=== PATIENT | female | born 1965 | race Caucasian/White ===

== ENCOUNTER → 2018-05-15 10:33 | Outpatient (CLI) | payer BC, SELFPAY ==
[2018-05-15 10:57] LABS: Basophils # 0.1 K/mm3 (0-0.2); Basophils % 0.5 % (0.1-2.0); Eosinophils # 0.1 K/mm3 (0.0-0.4); Eosinophils % 1.4 % (0.1-12.0); Hematocrit 47.7 % (37.0-47.0); Hemoglobin 15.6 g/dL (12.2-16.2); Lymphocytes # 1.6 K/mm3 (0.7-4.5); Lymphocytes % 18.2 K/mm3 (10-50); Mean Corpuscular HGB Conc 32.6 g/dL (31.8-35.4); Mean Corpuscular Hemoglobin 32.3 pg (27.0-31.2); Mean Platelet Volume 7.6 fl (7.4-10.4); Monocytes # 0.4 K/mm3 (0.1-1.0); Monocytes % 4.3 % (1.7-9.3); Neutrophils # 6.6 K/mm3 (1.8-7.8); Neutrophils % 75.6 % (37.0-80.0); Platelet Count 240 K/mm3 (142-424); Red Blood Count 4.82 M/mm3 (4.20-5.40); Red Cell Distribution Width 12.7 % (11.5-17.5); White Blood Count 8.7 K/mm3 (4.8-10.8)
[2018-05-15 11:10] LABS: Anion Gap 12.8 mEq/L (5-15); Blood Urea Nitrogen 10 mg/dL (7-18); Calcium 9.6 mg/dL (8.5-10.1); Carbon Dioxide 27 mmol/L (21.0-32.0); Chloride 95 mmol/L (98-107); Creatinine,Serum 0.79 mg/dL (0.55-1.02); Estimated Glomerular Filt Rate 77 ml/min (>60); GFR (African American) 93 ML/MIN (>60); Glucose 109 mg/dL (74-106); Potassium 3.8 mmoL/L (3.5-5.1); Sodium 131 mmol/L (136-145)
== END ==
PROVIDERS: Visit Provider Internal Medicine Adolescent Medicine
DX: I10 Essential (primary) hypertension (principal)
CPT/HCPCS: 36415; 80048; 85025

== ENCOUNTER → 2019-01-09 09:21 | Outpatient (CLI) | payer BC, SELFPAY ==
--- NOTE | 2019-01-09 09:24 | MM_ITS ---
MM Dig screening mamm BI w/CAD CAD Screening COMPARISON: Digital mammograms with CAD 06/21/2017 and 01/19/2016 INDICATION: There is a history of breast cancer in patient's maternal aunt. There has been previous bilateral breast reduction surgery. TECHNIQUE: Standard CC and MLO images were obtained. R2 CAD reviewed. FINDINGS: Mild scattered fibroglandular densities are seen throughout both breast on a background of fatty type breast parenchyma. There is minimal post surgical scarring inferior quadrants of each breast. There is no suspicious lesion and there are no suspicious microcalcifications. IMPRESSION: Fibrofatty parenchyma no suspicious lesion seen BI-RADS Category: 1 Negative RECOMMENDED FOLLOW-UP: 1YR - 1 YEAR FOLLOW-UP (A letter has been sent to the patient regarding results of the study.)
== END ==
PROVIDERS: PCP Internal Medicine Adolescent Medicine; Visit Provider Nurse Practitioner Obstetrics & Gynecology
DX: Z12.31 Encounter for screening mammogram for malignant neoplasm of breast (principal)
CPT/HCPCS: 77067

== ENCOUNTER → 2020-02-25 11:03 | Outpatient (CLI) | payer BC, SELFPAY ==
[2020-02-25 11:14] LABS: Microscopic, Urine URINE MICROSCOPIC (MICROSCOPIC)
--- NOTE | 2020-02-25 11:22 | CT_ITS ---
PROCEDURE: CT ABDOMEN PELVIS WO CON CLINICAL INDICATION: LT FLANK PAIN COMPARISON: No exams were available for comparison TECHNIQUE: Axial images obtained with sagittal and coronal reformats. All CT scans at the facility use one or more dose reduction, viz: automated exposure control, ma/kV adjustment per patient size (including targeted exams where dose is matched to indication, i.e. head), or iterative reconstruction technique. FINDINGS: LOWER THORAX: No acute finding ABDOMEN & PELVIS: The liver, spleen, pancreas, adrenal glands, and kidneys show no acute finding. There is no renal stone or obstruction. No intestinal obstruction or free air. No evidence of appendicitis or diverticulitis. No pelvic mass, abnormal fluid collection, or focal inflammatory change of the pelvis. There is a nonspecific enlarged retrocrural lymph node 9.2 x 11.6 millimeters. No other lymphadenopathy is evident. There is mild chronic compression deformity of T12 with degenerative Schmorl's node along the superior endplate and there is degenerative disc disease at T11-12. An approximately 1 centimeter fat density at the ileocecal is likely a benign lipoma. IMPRESSION: No acute finding. Dictated by: Raheel Galvan 02/25/2020 12:13 Electronically signed by Raheel Galvan in [facility] 02/25/2020 12:13
[2020-02-25 11:30] LABS: Chloride 92 mmol/L (98-107)
[2020-02-25 11:31] LABS: Potassium 3.5 mmoL/L (3.5-5.1); Sodium 129 mmol/L (136-145)
[2020-02-25 11:32] LABS: Basophils # 0.1 K/mm3 (0-0.2); Basophils % 0.8 % (0.1-2.0); Eosinophils # 0.1 K/mm3 (0.0-0.4); Eosinophils % 0.8 % (0.1-12.0); Hematocrit 44.4 % (37.0-47.0); Hemoglobin 14.8 g/dL (12.2-16.2); Lymphocytes # 1.5 K/mm3 (0.7-4.5); Lymphocytes % 21.2 % (10-50); Mean Corpuscular HGB Conc 33.4 g/dL (31.8-35.4); Mean Corpuscular Hemoglobin 34.1 pg (27.0-31.2); Mean Corpuscular Volume 102.1 fl (81-99); Mean Platelet Volume 7.4 fl (7.4-10.4); Monocytes # 0.3 K/mm3 (0.1-1.0); Monocytes % 4.2 % (1.7-9.3); Neutrophils # 5.3 K/mm3 (1.8-7.8); Neutrophils % 73.1 % (37.0-80.0); Platelet Count 222 K/mm3 (142-424); Red Blood Count 4.35 M/mm3 (4.20-5.40); Red Cell Distribution Width 12.6 % (11.5-17.5); White Blood Count 7.3 K/mm3 (4.8-10.8)
[2020-02-25 11:33] LABS: Alanine Aminotransferase 30 U/L (12-78); Aspartate Amino Transferase 39 U/L (14-36); Blood Urea Nitrogen 9 mg/dl (7-17); Estimated Glomerular Filt Rate 75 ml/min (>60); GFR (African American) 91 ML/MIN (>60)
[2020-02-25 11:34] LABS: Albumin Level 4.3 g/dl (3.5-5.0); Albumin/Globulin Ratio 1.4 (1.1-1.8); Alkaline Phosphatase 76 U/L (38-126); Anion Gap 13.5 mEq/L (5-15); Bilirubin,Total 0.5 mg/dl (0.2-1.3); Calcium 9.7 mg/dl (8.4-10.2); Carbon Dioxide 27 mmol/L (22.0-30.0); Glucose 116 mg/dl (74-100); Total Protein,Serum 7.3 g/dl (6.3-8.2)
[2020-02-25 11:55] LABS: Appearance,Urine CLEAR (Clear); Bilirubin,Urine Negative (Negative); Blood, Urine TRACE-I (Negative); Color,Urine YELLOW (Yellow); Glucose,Urine (UA) Negative (Negative); Ketones,Urine TRACE (Negative); Leukocyte Esterase,Urine Negative (Negative); Nitrate,Urine Negative (Negative); Protein,Urine Negative (Negative); Urobilinogen,Urine 0.2 EU/dl (0.2)
[2020-02-25 12:02] LABS: Bacteria,Urine Trace /lpf
== END ==
PROVIDERS: PCP Internal Medicine Adolescent Medicine; Visit Provider Internal Medicine Adolescent Medicine
DX: R10.9 Unspecified abdominal pain (principal); R31.29 Other microscopic hematuria
CPT/HCPCS: 36415; 74176; 80053; 81001; 85025; 87086

== ENCOUNTER → 2020-09-28 11:09 | Outpatient (CLI) | payer BC, SELFPAY ==
--- NOTE | 2020-09-28 11:09 | MM_ITS ---
PROCEDURE: MM DIG SCREENING MAMM BI W/CAD Referring Doctor: Tye Schroeder Patient Age:55Y CLINICAL INDICATION: screening xmg 55-year-old. No hormones. No new complaints. Previous bilateral breast reduction. Family history maternal aunt with breast cancer COMPARISON: MG DMSB DIG MAMM-SCREEN SANG from 01/19/2016 MG DMSB DIG MAMM-SCREEN SANG W/CAD from 06/21/2017 MG [facility]BI MM Dig screening mamm BI w/CAD from 01/09/2019 TECHNIQUE: Standard CC and MLO images were obtained. R2 CAD reviewed. Bilateral digital breast tomosynthesis included. Additional CC nipple profile view and additional CC tomosynthesis left breast included the FINDINGS: Lower density breast.. Minimal residual fibroglandular elements no suspicious nor dominant mass either breast but; no suspicious calcifications. CAD highlights no areas of concern Evidence of subtle minimal scarring towards the deep margin of breast most notable deep lateral breast, from previous remote breast reduction. Stable feature IMPRESSION: Stable bilateral mammogram. No new areas of concern. Bilateral follow-up 1 year recommended BI-RAD Category: 1 Negative FOLLOW-UP: 1YR 1 Year Follow-up (A letter has been sent to the patient regarding results of the study.) Dictated by: Franco Bruner MD 10/06/2020 10:55 Franco Bruner MD in [facility] 10/06/2020 10:55
== END ==
PROVIDERS: PCP Internal Medicine Adolescent Medicine; Visit Provider Nurse Practitioner Obstetrics & Gynecology
DX: Z12.31 Encounter for screening mammogram for malignant neoplasm of breast (principal)
CPT/HCPCS: 77063; 77067

== ENCOUNTER → 2020-12-22 11:36 | Outpatient (CLI) | payer BC, SELFPAY ==
[2020-12-22 12:08] LABS: Basophils # 0.1 K/mm3 (0-0.2); Basophils % 1.1 % (0.1-2.0); Eosinophils # 0.1 K/mm3 (0.0-0.4); Eosinophils % 1.4 % (0.1-12.0); Hematocrit 45.6 % (37.0-47.0); Hemoglobin 15.1 g/dL (12.2-16.2); Lymphocytes # 1.5 K/mm3 (0.7-4.5); Lymphocytes % 26.4 % (10-50); Mean Corpuscular HGB Conc 33.1 g/dL (31.8-35.4); Mean Corpuscular Hemoglobin 32.7 pg (27.0-31.2); Mean Corpuscular Volume 98.9 fl (81-99); Mean Platelet Volume 7.5 fl (7.4-10.4); Monocytes # 0.3 K/mm3 (0.1-1.0); Monocytes % 4.5 % (1.7-9.3); Neutrophils # 3.7 K/mm3 (1.8-7.8); Neutrophils % 66.6 % (37.0-80.0); Platelet Count 238 K/mm3 (142-424); Red Blood Count 4.61 M/mm3 (4.20-5.40); Red Cell Distribution Width 12.7 % (11.5-17.5); White Blood Count 5.6 K/mm3 (4.8-10.8)
[2020-12-22 12:42] LABS: Alanine Aminotransferase 39 U/L (12-78); Albumin/Globulin Ratio 1.6 (1.1-1.8); Alkaline Phosphatase 127 U/L (38-126); Anion Gap 13.1 mEq/L (5-15); Aspartate Amino Transferase 45 U/L (14-36); Bilirubin,Total 0.5 mg/dl (0.2-1.3); Blood Urea Nitrogen 10 mg/dl (7-17); Calcium 10.4 mg/dl (8.4-10.2); Carbon Dioxide 28 mmol/L (22.0-30.0); Chloride 92 mmol/L (98-107); Cholesterol 254 mg/dl (140-200); Estimated Glomerular Filt Rate 88 ml/min (>60); GFR (African American) 106 ML/MIN (>60); Globulin 3.1 g/dL (1.3-3.2); Glucose 99 mg/dl (74-100); Potassium 4.1 mmoL/L (3.5-5.1); Sodium 129 mmol/L (136-145); Total Protein,Serum 8.1 g/dl (6.3-8.2); Triglycerides 76 mg/dl (30-150); VLDL Cholesterol 15 mg/dL (0-40)
[2020-12-22 13:48] LABS: Vitamin B12 893 pg/mL (239-931)
[2020-12-22 13:49] LABS: Folate 6.72 ng/mL
[2020-12-22 14:09] LABS: Chol/HDL Ratio 1.7 (1-3.5); HDL Cholesterol 152 mg/dl (40-60)
== END ==
PROVIDERS: Visit Provider Internal Medicine Adolescent Medicine
DX: D75.89 Other specified diseases of blood and blood-forming organs (principal)
CPT/HCPCS: 36415; 80053; 80061; 82607; 82746; 85025

== ENCOUNTER → 2021-02-02 11:16 | Outpatient (CLI) | payer BC, SELFPAY ==
[2021-02-02 12:30] LABS: Anion Gap 11.9 mEq/L (5-15); Blood Urea Nitrogen 7 mg/dl (7-17); Calcium 10.1 mg/dl (8.4-10.2); Carbon Dioxide 26 mmol/L (22.0-30.0); Chloride 99 mmol/L (98-107); Estimated Glomerular Filt Rate 75 ml/min (>60); GFR (African American) 91 ML/MIN (>60); Glucose 101 mg/dl (74-100); Potassium 4.9 mmoL/L (3.5-5.1); Sodium 132 mmol/L (136-145)
== END ==
PROVIDERS: Visit Provider Internal Medicine Adolescent Medicine
DX: E87.1 Hypo-osmolality and hyponatremia (principal); I10 Essential (primary) hypertension
CPT/HCPCS: 36415; 80048

== ENCOUNTER → 2022-01-31 09:52 | Outpatient (CLI) | payer BC, SELFPAY ==
--- NOTE | 2022-01-31 09:52 | MM_ITS ---
PROCEDURE INFORMATION: Exam: MG Bilateral Screening 3D Mammography Exam date and time: 01/31/2022 9:52 AM Age: 56 years old Clinical indication: Screening. A maternal aunt had breast cancer. TECHNIQUE: Imaging protocol: Bilateral Screening tomosynthesis and 2D mammography including computer-aided detection (CAD) when performed. 2D images used for review. COMPARISON: MG MM DIG SCREENING MAMM BI W/CAD 09/28/2020 11:11 AM FINDINGS: MAMMOGRAPHY: Breast composition: The breasts are almost entirely fatty. Mass: None. Architectural distortion: Bilateral diffuse mild architectural distortion, with bilateral reduction mammoplasty. No suspicious architectural distortion. Calcifications: No suspicious calcifications. Asymmetric density: None. Skin thickening: None. Axillary adenopathy: None. IMPRESSION: No mammographic evidence of malignancy. Annual screening is recommended unless otherwise clinically indicated. ASSESSMENT: BI-RADS Category 2: Benign
== END ==
PROVIDERS: PCP Internal Medicine Adolescent Medicine; Visit Provider Nurse Practitioner Obstetrics & Gynecology
DX: Z12.31 Encounter for screening mammogram for malignant neoplasm of breast (principal)
CPT/HCPCS: 77063; 77067

== ENCOUNTER → 2022-05-31 10:23 | Outpatient (CLI) | payer BC, SELFPAY | PROVIDERS: PCP Internal Medicine Adolescent Medicine; Visit Provider Surgery | DX: Z01.812 Encounter for preprocedural laboratory examination (principal); Z20.822 Contact with and (suspected) exposure to COVID-19; Z12.11 Encounter for screening for malignant neoplasm of colon | CPT/HCPCS: C9803; U0003; U0005 ==

== ENCOUNTER 2022-06-02 07:19 | Day surgery (SDC) | payer BC, SELFPAY ==
[2022-05-31 12:14] VITALS: BMI 25.7
[2022-06-02 07:34] VITALS: BP 134/91; PULSE 93; RESP 18; TEMP 37.2; O2SAT 97
[2022-06-02 08:12] VITALS: O2SAT 97
--- NOTE | 2022-06-02 08:12 | HMH.ANESCL ---
[facility] Anesthesia Checklist - Patient Identification Patient Identification: Arm Band - Structural Data Admitted From: Home Planned Operative Procedure/s: colonoscopy Consent for Planned Operative Procedure(s) Verified: Yes Verified Documents: Surgical Consent, History and Physical - NPO Status Verified Time NPO: 00:00 - Additional verifications Anesthesia Reactions: No - Airway Assessment C-Spine Mobility Assessed: Yes (mp2) TMJ Mobility Assessed: Yes Dentition: Good Dentition - Neurological Assessment Level of Consciousness: Awake, Alert - Anesthesia Plan Anesthesia Risk discussed: Yes Anesthesia Plan: Verified ASA Class: II Anesthesia Type: MAC [facility] History I have reviewed the patient's past medical history: Yes Medical History: Reports:: Hypertension Denies:: Cancer, Diabetes Mellitus Type 1, Diabetes Mellitus Type 2, Internal Pacemaker, MRSA, Seizures *Have you ever received a pneumonia vaccine?: No *Have you received a flu vaccine this season?: Yes Anesthesia experience/problems:: nac Laterality Cases: Left: Arthroscopy Knee, Bilateral: Breast Biopsy, Carpal Tunnel Release, Other Other Surgeries: Yes: . No: Pacemaker Amputation: No Fractures: No - *Social History Last grade of school completed: Advanced degree Smoking Status: Former smoker Tobacco Type: cigarettes #Yrs smoked (if former smoker): 10 Smoking End Date: March 2022 Alcohol Intake: current Alcohol Intake Frequency:: a few times a week Substance Use Type: denies use *Occupational Status:: retired Housing: house Household Members: spouse *Travel in the last 8 weeks: None Family Hx:: No significant family history
[2022-06-02 08:45] VITALS: BP 107/73; PULSE 82; RESP 18; TEMP 36.2; O2SAT 99
--- NOTE | 2022-06-02 08:45 | HMH.SCOPE ---
- Procedure: Date: 06/02/22 Patient Date of :: 1965 Procedure Performed:: Total colonoscopy to terminal ileum with polypectomy using cold snare Indications:: Patient is a 56-year-old female. She has family history of colon cancer in her father. I had performed colonoscopy as an initial screen on her on 06/20/2016. She had a large cecal tubular adenoma. Recommendations were for early follow-up colonoscopy to ensure complete removal. She had colonoscopy on 02/06/2017. 3 to 5-year colonoscopy follow-up was recommended. Performing Provider:: Dionisio Oneal MD Referring Provider:: Clif Cruz MD Sedation:: MAC sedation Procedure:: Patient was taken to endoscopy procedure room. She was positioned in lateral decubitus position. Adequate intravenous sedation was achieved with anesthesia titration propofol. Variable stiffness Olympus colonoscope was inserted via the anus. Is advanced to the cecum. There was some particulate liquid stool but this was able to be cleared for good visualization. Ileocecal valve and appendiceal orifice were clearly identified. Colonoscope was advanced a short distance into the terminal ileum which appeared grossly normal. Colonoscope was slowly withdrawn through the colon with careful surveillance. The distal sigmoid at the sigmoid flexure there was a small 5 to 7 mm polyp removed with cold cutting snare. Retroflexion was performed within the rectum which revealed no evidence of any pathologic internal hemorrhoids. Colonoscope was withdrawn. Findings:: Distal sigmoid polyp, 5 to 7 mm, removed with cutting snare Recommendations:: Follow-up colonoscopy pending pathology. Likely 3 to 5 years Complications:: None immediately apparent Estimated blood obtained (mL): 1
[2022-06-02 08:55] VITALS: BP 115/73; PULSE 72; RESP 18; O2SAT 97
[2022-06-02 09:05] VITALS: BP 118/84; PULSE 74; RESP 18; O2SAT 97
== END 2022-06-02 09:05 | disposition home or self-care (01) ==
LOC: OUTP 07:21
PROVIDERS: PCP Internal Medicine Adolescent Medicine; Visit Provider Surgery
PROC: 0DJD8ZZ Inspection of Lower Intestinal Tract, Via Natural or Artificial Opening Endoscopic (ICD-10-PCS; CPT 45385; principal; 2022-06-02 08:30)
DX: K63.5 Polyp of colon (principal); Z80.0 Family history of malignant neoplasm of digestive organs; I10 Essential (primary) hypertension; Z79.899 Other long term (current) drug therapy
CPT/HCPCS: 45385

== ENCOUNTER → 2023-06-06 08:15 | Outpatient (CLI) | payer BC, SELFPAY ==
--- NOTE | 2023-06-06 08:34 | MM_ITS ---
PROCEDURE INFORMATION: Exam: MG Bilateral Screening 3D Mammography Exam date and time: 06/06/2023 8:43 AM Age: 57 years old Clinical indication: Screening examination TECHNIQUE: Imaging protocol: Bilateral Screening tomosynthesis and 2D mammography including computer-aided detection (CAD) when performed. COMPARISON: 1. MG MM DIG SCREENING MAMM BI W/CAD 01/31/2022 10:00 AM 2. MG MM DIG SCREENING MAMM BI W/CAD 09/28/2020 11:11 AM FINDINGS: MAMMOGRAPHY: Breast composition: There are scattered areas of fibroglandular density. Mass: None. Architectural distortion: None. Calcifications: No suspicious calcifications. Asymmetric density: None. Skin thickening: None. Axillary adenopathy: None. IMPRESSION: No mammographic evidence of malignancy. Annual screening is recommended unless otherwise clinically indicated. ASSESSMENT: BI-RADS Category 1: Negative
--- NOTE | 2023-06-06 08:36 | XR_ITS ---
FINAL REPORT CLINICAL HISTORY: POST MENOPAUSAL COMPARISON: None FINDINGS: Using L1-4, the bone mineral density of the spine is 0.881 g/cm2, corresponding to T-score of -1.5, consistent with low bone density. Using the left hip, the bone mineral density of the femoral neck is 0.729 g/cm2, corresponding to a T-score of -1.1, consistent with low bone density. Using the right hip, the bone mineral density of the femoral neck is 0.710 g/cm2, corresponding to a T-score of -1.3, consistent with low bone density. FRAX 10 year fracture risk is 0.6% for a hip fracture and 6.8% for a major osteoporotic fracture. NOTE: T-score: Standard deviation compared with peak bone mass of young adult mean. *Following the recommendations of the International Society of Bone densitometry, classification of hip BMD is based on the lower of two T-scores; total hip or femoral neck. IMPRESSION: Diminished bone mineral density consistent with low bone density. Reviewed, Interpreted and Dictated by Dionisio Ayon III, MD Transcribed by Lissa Suarez Authenticated and [facility]
== END ==
PROVIDERS: PCP Internal Medicine Adolescent Medicine; Visit Provider Nurse Practitioner Obstetrics & Gynecology
DX: Z12.31 Encounter for screening mammogram for malignant neoplasm of breast (principal); Z78.0 Asymptomatic menopausal state
CPT/HCPCS: 77063; 77067; 77080

== ENCOUNTER 2023-08-17 21:46 | Emergency (ER) | payer BC, SELFPAY ==
--- NOTE | 2023-08-17 21:32 | PC.NURSE ---
Upon arrival to ED room assignment via stretcher and EMT, patient immediately stated I do not want to be seen. I do not want treatment . Witnessed by [facility]. Patient stood independently, complained about not having shoes, socks were offered,refused. Argued with staff about which door to leave outside of. Patient was informed to leave via the lobby and main entrance. Patient stated again he didn't want treatment and refused to stay despite discussing consequences. Refused vital signs. Refused IV or lab work. Left out of ED independently. notified.
[2023-08-17 21:42] VITALS: BP 0/0; PULSE 0; RESP 0; TEMP -17.7; TEMP 0; O2SAT 0
== END 2023-08-17 22:09 | disposition left against medical advice (07) ==
PROVIDERS: Emergency Provider Emergency Medicine
DX: Z53.21 Procedure and treatment not carried out due to patient leaving prior to being seen by health care provider (principal)
CPT/HCPCS: 99211

== ENCOUNTER 2023-08-17 22:27 | Emergency (ER) | payer SELFPAY ==
[2023-08-17 22:28] VITALS: BP 145/65; PULSE 73; RESP 18; TEMP 36.8; O2SAT 98; BMI 29.4
[2023-08-17 22:36] LABS: POC Glucose,Bedside 93 (70-110)
--- NOTE | 2023-08-17 22:37 | XR_ITS ---
PROCEDURE INFORMATION: Exam: XR Chest Exam date and time: 08/17/2023 11:30 PM Age: 55 years old Clinical indication: Other: Syncope TECHNIQUE: Imaging protocol: Radiologic exam of the chest. Views: 1 view. COMPARISON: CT ABDOMEN PELVIS WO CON 02/25/2020 11:23 AM FINDINGS: Lungs: Unremarkable. No consolidation. Pleural spaces: Unremarkable. No pleural effusion. No pneumothorax. Heart/Mediastinum: Unremarkable. No cardiomegaly. Bones/joints: Unremarkable for patient age. IMPRESSION: No acute findings.
--- NOTE | 2023-08-17 22:37 | CT_ITS ---
PROCEDURE INFORMATION: Exam: CT Head Without Contrast Exam date and time: 08/17/2023 11:20 PM Age: 55 years old Clinical indication: Syncope and collapse; Additional info: Recurrent passing out TECHNIQUE: Imaging protocol: Computed tomography of the head without contrast. Radiation optimization: All CT scans at this facility use at least one of these dose optimization techniques: automated exposure control; mA and/or kV adjustment per patient size (includes targeted exams where dose is matched to clinical indication); or iterative reconstruction. REPORTING DATA: Count of CT and Cardiac NM exams in prior 12 months: This patient has received 0 known CTs and 0 known cardiac nuclear medicine studies in the 12 months prior to the current study. COMPARISON: No relevant prior studies available. FINDINGS: Brain: There are calcifications of the pineal gland. There is calcification of the falx cerebrum. No evidence for acute intracranial hemorrhage, midline shift, or mass effect. No convincing evidence for acute transcortical infarct. Cerebral ventricles: There are calcifications of the choroid plexus. Paranasal sinuses: Visualized sinuses are unremarkable. No fluid levels. Mastoid air cells: Visualized mastoid air cells are well aerated. Orbital cavities: Mesh like hardware is in place over the frontal calvarium and extends into the superior orbits. Bones/joints: Unremarkable. No acute fracture. Soft tissues: There is a left nasal ring. IMPRESSION: No evidence for acute intracranial hemorrhage, midline shift, or mass effect. No convincing evidence for acute transcortical infarct.
--- NOTE | 2023-08-17 22:40 | HMH.EDGENADL ---
Discharge Plan Disposition Patient Disposition: Home, Self-Care Condition: Good Prescriptions Prescriptions: No Action bupropion HCl 150 mg tablet extended release 24 hr 150 mg PO Patient Comments: TAKE 1 TABLET BY MOUTH EVERY 24 HOURS peg 3350-electrolytes [Golytely] 236-22.74-6.74 -5.86 gram recon soln 240 ml PO Q10M Qty: 4000 0RF Rx Instructions: until fecal effluent is clear nifedipine 30 MG tablet extended release 24 hr 30 mg PO DAILY Referrals Follow up/Referrals: Provider,Referral, [Primary Care Provider] - See instructions Activity Restrictions/Add. Instructions Additional Instructions/Restrictions: You were evaluated in the emergency department today. Please follow-up with your primary care provider. Return to the emergency department for any new or worsening symptoms. Clinical Impressions Clinical Impression: Pre-syncope Instructions Patient Instructions: Fainting, Dizziness, Nonvertigo Discharge ED Provider: Joanne Salcido General Adult HPI <Tom Triana MD - Last Filed: 08/17/23 23:08> General Chief complaint: Dizziness Stated complaint: overdose Time Seen by Provider: 08/17/23 22:41 History of Present Illness HPI narrative: Patient is a 58-year-old male transitioning to female who presents to the emergency department for evaluation of being found down. Earlier this evening patient was found down in the field, received intranasal Narcan with rapid return to baseline and presented here where patient was alert and oriented and signed out AMA with nursing prior to my evaluation. Patient subsequently called 911 [address] stating that they felt lightheaded and was found down again in the field. Please reportedly gave 4 mg of intranasal Narcan with response. Patient states that they have episodes of hypoglycemia. Fingerstick blood glucose was nonactionable in the field. Over the past year patient states 3 similar instances have occurred of unknown etiology. No chronic medical history. No other acute complaints at this time. Patient is adamant that they did not ingest any illicits this evening. Currently complaining of right shoulder pain. Related Data Home Medications Medication Instructions Recorded Confirmed nifedipine 30 mg tablet,extended 30 mg PO DAILY High blood pressure 05/31/22 06/06/23 release 24 hr bupropion HCl 150 mg 24 hr tablet, 150 mg PO 06/06/23 06/06/23 extended release Previous Rx's Medication Instructions Recorded peg 3350-electrolytes 236 240 ml PO Q10M #4,000 mL 05/11/22 gram-22.74 gram-6.74 gram-5.86 gram solution (Golytely) Allergies Allergy/AdvReac Type Severity Reaction Status Date / Time No Known Drug Allergies Allergy Unknown Verified 06/06/23 09:52 [NO KNOWN DRUG ALLERGIES] PFSH <Tom Triana MD - Last Filed: 08/17/23 23:08> PFSH Disclaimer: The information contained in this section may have been updated after the patient was seen, as this information can be updated by other users. Medical History (Updated 08/18/23 @ 05:51 by Joanne Salcido DO) Abscess Monteiro's syndrome delivery delivered Surgical History (Updated 06/06/23 @ 09:55 by Elizabeth Escalona CMA) H/O left knee surgery Hx of breast reduction, elective Social History Smoking Status: Unknown if ever smoked alcohol intake: current substance use type: denies use current occupational status: retired Travel in the last 8 weeks: None household members: spouse housing: house current occupational exposures/hazards: No caffeine: Yes <Tom Triana MD - Last Filed: 08/17/23 23:08> ROS Obtained: Yes Systems reviewed as appropriate & no additional complaints except as documented Physical Exam <Tom Triana MD - Last Filed: 08/17/23 23:08> General General appearance: alert and in no apparent distress Head Head exa
--- NOTE | 2023-08-17 23:02 | ECG_ITS ---
APPROVED REPORT Exam: Resting ECG HR:69 bpm ECG Measurements Heart Rate [address] 164 P 53 QRSd 93 QRS 53 QT 422 T 71 QTc 441 Conclusion SINUS RHYTHM LOW QRS VOLTAGE IN PRECORDIAL LEADS [QRS DEFLECTION < 1.0 mV IN CHEST LEADS] BORDERLINE ECG UNCONFIRMED REPORT Electronically signed by : Calvin Valverde MD 08/19/2023 07:33:50
[2023-08-17 23:07] VITALS: BP 120/07; PULSE 68; O2SAT 100
[2023-08-17 23:16] LABS: Basophils # 0.1 K/mm3 (0-0.2); Basophils % 0.6 % (0.1-2.0); Eosinophils # 0.3 K/mm3 (0.0-0.4); Eosinophils % 2.5 % (0.1-12.0); Hematocrit 44.2 % (37.0-47.0); Hemoglobin 14.3 g/dL (12.2-16.2); Lymphocytes # 1.9 K/mm3 (0.7-4.5); Lymphocytes % 14.9 % (10-50); Mean Corpuscular HGB Conc 32.4 g/dL (31.8-35.4); Mean Corpuscular Hemoglobin 29.3 pg (27.0-31.2); Mean Corpuscular Volume 90.6 fl (81-99); Mean Platelet Volume 8.5 fl (7.4-10.4); Monocytes # 0.3 K/mm3 (0.1-1.0); Monocytes % 2.6 % (1.7-9.3); Neutrophils # 9.8 K/mm3 (1.8-7.8); Neutrophils % 79.3 % (37.0-80.0); Platelet Count 211 K/mm3 (142-424); Red Blood Count 4.88 M/mm3 (4.20-5.40); Red Cell Distribution Width 12.6 % (11.5-17.5); White Blood Count 12.4 K/mm3 (4.8-10.8)
[2023-08-17 23:17] LABS: Chloride 108 mmol/L (98-107); Sodium 141 mmol/L (136-145)
[2023-08-17 23:18] LABS: Potassium 3.7 mmoL/L (3.5-5.1)
[2023-08-17 23:20] LABS: Alanine Aminotransferase 32 U/L (12-78); Alkaline Phosphatase 88 U/L (38-126); Anion Gap 10.7 mEq/L (5-15); Aspartate Amino Transferase 37 U/L (14-36); Bilirubin,Total 0.6 mg/dl (0.2-1.3); Blood Urea Nitrogen 11 mg/dl (7-17); Carbon Dioxide 26 mmol/L (22.0-30.0); Creatinine Clearance Estimated 123 mL/min (50-200); Estimated Glomerular Filt Rate 75 ml/min (>60); GFR (African American) 91 ML/MIN (>60)
[2023-08-17 23:21] LABS: Albumin Level 4.1 g/dl (3.5-5.0); Albumin/Globulin Ratio 1.1 (1.1-1.8); Calcium 8.9 mg/dl (8.4-10.2); Globulin 3.7 g/dL (1.3-3.2); Glucose 102 mg/dl (74-100); Magnesium 1.8 mg/dl (1.6-2.3); Total Protein,Serum 7.8 g/dl (6.3-8.2)
[2023-08-17 23:26] LABS: Ethyl Alcohol < 10 mg/dl (0-10)
[2023-08-17 23:30] VITALS: BP 128/82; PULSE 73; RESP 17; O2SAT 97
[2023-08-17 23:51] LABS: Thyroid Stimulating Hormone 1.16 uIU/mL (0.465-4.68)
[2023-08-18 00:01] VITALS: BP 96/60; RESP 17
[2023-08-18 01:00] VITALS: BP 105/72; PULSE 64; RESP 18; O2SAT 97
[2023-08-18 01:30] VITALS: BP 117/73; PULSE 74; RESP 18; O2SAT 97
[2023-08-18 02:00] VITALS: BP 107/71; PULSE 69; RESP 17; O2SAT 96
[2023-08-18 02:30] LABS: POC Glucose,Bedside 97 (70-110)
--- NOTE | 2023-08-18 05:43 | PC.NURSE ---
Patient ambulated down the walker and back to the room.
[2023-08-18 06:20] VITALS: BP 118/77; PULSE 79; RESP 18; TEMP 36.5
--- NOTE | 2023-08-18 06:55 | PC.NURSE ---
Patient attempted to walk out of the facility and experienced another near syncopal episode. Patient was taken back to original room via wc. Returned to bed. VS obtained. New orders received. Remained A&O x 4.
--- NOTE | 2023-08-18 07:01 | PC.NURSE ---
report given to Moodyrn
--- NOTE | 2023-08-18 07:28 | PC.NURSE ---
dr ocampo speaking with dr rios
--- NOTE | 2023-08-18 07:34 | PC.NURSE ---
unable to tolerate standing orthostatic blood pressure, reports room is spinning sitting b/p 118/91 hr 74
--- NOTE | 2023-08-18 07:35 | PC.NURSE ---
Dr. Brewster at BS to speak with pt
--- NOTE | 2023-08-18 07:45 | PC.NURSE ---
assisted to br, ambulated with minimal assist
[2023-08-18 07:52] LABS: Microscopic, Urine URINE MICROSCOPIC (MICROSCOPIC)
[2023-08-18 07:55] LABS: Appearance,Urine CLEAR (Clear); Bilirubin,Urine Negative (Negative); Blood, Urine Negative (Negative); Color,Urine YELLOW (Yellow); Glucose,Urine (UA) Negative (Negative); Ketones,Urine Negative (Negative); Leukocyte Esterase,Urine Negative (Negative); Nitrate,Urine Negative (Negative); Protein,Urine Negative (Negative); Specific Gravity, Urine >= 1.030 (1.005-1.030); Urobilinogen,Urine 0.2 EU/dl (0.2)
[2023-08-18 07:57] VITALS: BP 125/84; BP 128/88; BP 131/91; PULSE 68; PULSE 72; PULSE 86
--- NOTE | 2023-08-18 07:59 | PC.NURSE ---
Dr. Brewster at bedside s/w pt regarding admission vs d/c. He would like Toradol 30 mg IM to help with neck & head discomfort. Pt aslo wished to have her blood sugar rechecked. FS was 90. Pt requesting OJ, this was given to pt.
--- NOTE | 2023-08-18 07:59 | PC.NURSE ---
Pt blood glucose rechecked per pt request FSBS: 90. Pt requested orange juice. Juice given. No other needs voiced at this time.
[2023-08-18 08:05] LABS: POC Glucose,Bedside 90 (70-110)
[2023-08-18 08:07] LABS: Amphetamine/Metha Screen,Urine Negative ng/ml (<1000); Benzodiazepines Screen,Urine Negative ng/ml (<200)
[2023-08-18 08:08] LABS: Bacteria,Urine Trace /lpf; Barbiturates Screen,Urine Negative ng/ml (<200); Methadone Screen,Urine Negative ng/ml (<300); RBC,Urine Occasional #/hpf (0-3); WBC,Urine Occasional #/hpf (0-3)
[2023-08-18 08:09] LABS: Cannabinoid Screen,Urine Negative ng/ml (<50)
--- NOTE | 2023-08-18 08:09 | EXP.MED.CON ---
History of Present Illness *Admission Date: 08/18/23 *Reason for visit:: Being found down, syncope *History of present illness: Ms. Buitrago is a 55-year-old male transitioning to female who presented to the ER for evaluation after being found down in the grass near the hospital. She initially received intranasal Narcan via EMS with return to baseline and presented to the ER where she was alert and oriented and signed out AMA. She represented shortly after after calling 911 and being found down again. Responded to a second dose of intranasal Narcan. Patient denies taking anything for pain or any opiates. Does complain of pain in her neck however. Has been feeling weak, states that she feels this way when her blood sugar is low. On evaluation in the ER, labs were unremarkable with normal kidney function and liver function. Stable on room air. Blood pressure normal. Negative orthostatic vitals. Extensive work-up with no acute findings. Given continued weakness however, medicine was consulted to evaluate for possible admission. On evaluation, patient is able to stand with minimal assistance and walk to the bathroom. Finally felt the need to give a urine sample and go to the bathroom. Was complaining of pain in neck causing headache as a major source for weakness. This was treated with an IV dose of Toradol 30 mg x 1. Additionally felt weak and blood sugar was below 100, given orange juice and felt somewhat better. After much discussion and evaluation, patient felt comfortable going home with her friend. Friend was called to pick her up. Patient denied chest pain, shortness of breath, confusion, nausea, vomiting, diarrhea. Does complain of recent unstable situation and housing as she just moved to [place] from [place] 3 months ago after being evicted from her home. Appears to be anxious and dealing with significant stress. [facility] Disclaimer: The information contained in this section may have been updated after the patient was seen, as this information can be updated by other users. Medical History Abscess Monteiro's syndrome delivery delivered Surgical History H/O left knee surgery Hx of breast reduction, elective Social History Smoking Status: Unknown if ever smoked alcohol intake: current substance use type: denies use current occupational status: retired Travel in the last 8 weeks: None household members: spouse housing: house current occupational exposures/hazards: No caffeine: Yes Review of Systems Review of Systems Review of systems (narrative): 14 point review of systems performed, pertinent positives and negatives as per HPI Exam Data for Last 24 hours Vital signs and Labs for Last 24 Hours: Temp Pulse Resp BP Pulse Ox O2 Del Method 97.7 F 68 18 125/84 96 Room Air 08/18/23 06:20 08/18/23 07:57 08/18/23 06:20 08/18/23 07:57 08/18/23 02:00 08/17/23 22:28 Laboratory Results - last 24 hr 08/17/23 22:30: POC Glucose 93 08/17/23 23:00: WBC 12.4 H, RBC 4.88, Hgb 14.3, Hct 44.2, MCV 90.6, MCH 29.3, MCHC 32.4, RDW 12.6, Plt Count 211, MPV 8.5, Neut % (Auto) 79.3, Lymph % (Auto) 14.9, [place] % (Auto) 2.6, Eos % (Auto) 2.5, Baso % (Auto) 0.6, Neut # (Auto) 9.8 H, Lymph # (Auto) 1.9, [place] # (Auto) 0.3, Eos # (Auto) 0.3, Baso # (Auto) 0.1, Sodium 141, Potassium 3.7, Chloride 108 H, Carbon Dioxide 26, Anion Gap 10.7, BUN 11, Creatinine 0.80, Estimated Creat Clear 123, Estimated GFR 75, Est GFR ( Amer) 91, Glucose 102 H, Calcium 8.9, Magnesium 1.8, Total Bilirubin 0.6, AST 37 H, ALT 32, Alkaline Phosphatase 88, Total Protein 7.8, Albumin 4.1, Globulin 3.7 H, Albumin/Globulin Ratio 1.1, TSH 1.16, Plasma/Serum Alcohol < 10 08/18/23 02:22: POC Glucose 97 08/18/23 07:49: Urine Color Yellow, Urine Appearance Clear, Urine pH 6.0, Ur Spec
[2023-08-18 08:10] LABS: Cocaine Screen,Urine Negative ng/ml (<300); Opiate Screen,Urine Negative ng/ml (<300)
[2023-08-18 08:11] LABS: Phencyclidine Screen,Urine Negative ng/ml (<25)
--- NOTE | 2023-08-18 09:00 | PC.NURSE ---
rounded on pt, she is awaiting her ride. She was feeling tired and snack and drink offered and given to pt. OJ, PB, Crackers, and water.
--- NOTE | 2023-08-18 09:05 | PC.NURSE ---
pt's ride here. D/C instructions reviewed with pt and she was given a work note.
--- NOTE | 2023-08-18 09:07 | PC.NURSE ---
registration asking for pt to stop at the help desk intern to complete her registration. pt stated her understanding.
== END 2023-08-18 09:08 | disposition home or self-care (01) ==
PROVIDERS: Emergency Medicine; Emergency Provider Emergency Medicine
DX: R55 Syncope and collapse (principal); F41.9 Anxiety disorder, unspecified; T50.901A Poisoning by unspecified drugs, medicaments and biological substances, accidental (unintentional), initial encounter; M25.511 Pain in right shoulder
CPT/HCPCS: 70450; 71045; 80053; 80305; 81001; 82962; 83735; 84443; 85025; 93005; 96360; 96372; 99285